=== PATIENT | male | born 1970 | race Two or more races ===

== ENCOUNTER 2021-10-23 05:30 | Day surgery (SDC) | payer OTHER ==
[~2021-10-23 05:30] MED LIST: LOSARTAN-HCTZ1 EAC2 PO
== END 2021-10-23 16:05 | disposition home or self-care (01) ==
LOC: CIR.AMB 05:30
PROVIDERS: ATTEND Colon & Rectal Surgery
DX: K60.5 Anorectal fistula (principal); K60.3 Anal fistula; Z88.6 Allergy status to analgesic agent; I10 Essential (primary) hypertension; E78.00 Pure hypercholesterolemia, unspecified; J45.909 Unspecified asthma, uncomplicated; Z87.891 Personal history of nicotine dependence; E66.01 Morbid (severe) obesity due to excess calories

== ENCOUNTER 2022-10-29 06:10 | Day surgery (SDC) | payer OTHER ==
[~2022-10-29] VITALS: Ht 177.8 cm; Wt 129.3 kg
[~2022-10-29 06:10] MED LIST changes: +VALSARTAN160 MG PO
== END 2022-10-29 15:40 | disposition home or self-care (01) ==
LOC: CIR.AMB 06:10
PROVIDERS: ATTEND Colon & Rectal Surgery
DX: K60.5 Anorectal fistula (principal); K92.1 Melena; Z20.822 Contact with and (suspected) exposure to COVID-19; Z88.6 Allergy status to analgesic agent; I10 Essential (primary) hypertension; E66.9 Obesity, unspecified